=== PATIENT | male | born 1945 | race Hispanic/Latino ===

== ENCOUNTER 2017-08-07 14:24 | Inpatient (IN) | payer MEDICARE, BC ==
[2017-08-07] MEDS ORDERED: Sodium Chloride 0.9% 500 ML IV STA (15:13)
[2017-08-07 15:36] LABS: BASO # 0.02 K/mm3 (0.0-2.0); BASO % 0.2 % (0.0-3.0); EOS # 0.1 (0.0-0.7); EOS % 1.1 % (1.5-5.0); HEMOGLOBIN 14.8 g/dL (14.0-18.0); LYMPH # 1.8 (1.2-3.4); LYMPH % 15.9 % (22.0-35.0); MEAN CELL VOLUME 104.9 fl (80.0-105.0); MEAN CORPUSCULAR HEMOGLOBIN 35.9 pg (25.0-35.0); MEAN CORPUSCULAR HGB CONC 34.3 g/dl (31.0-37.0); MEAN PLATELET VOLUME 9.5 fl (7.0-11.0); MONO # 1.6 (0.1-0.6); MONO % 13.8 % (1.0-6.0); RBC 4.12 10^6/uL (3.5-6.1); RED CELL DISTRIBUTION WIDTH 13.8 % (11.5-14.5); WHITE BLOOD COUNT 11.6 10^3/ul (4.5-11.0)
[2017-08-07 15:49] LABS: INR 1.18 (0.93-1.08); PARTIAL THROMBOPLASTIN TIME 32.1 Seconds (25.1-36.5); PROTHROMBIN TIME 13.5 SECONDS (9.4-12.5)
[2017-08-07 15:52] LABS: ALBUMIN 3.5 g/dL (3.0-4.8); ALT/SGPT 29 U/L (7-56); AST/SGOT 42 U/L (17-59); BLOOD UREA NITROGEN 9 mg/dL (7-21); CALCIUM 8.7 mg/dL (8.4-10.5); GFR AFRICAN-AMERICAN > 60; GFR NON-AFRICAN AMERICAN > 60; LIPASE 47 U/L (23-300)
[2017-08-07] MEDS ORDERED: Iohexol 350 MG/100 ML VIAL ONE (17:06)
--- NOTE | 2017-08-07 17:27 | ED PDOC ---
Arrival/HPI - General Chief Complaint: Abdominal Pain Time Seen by Provider: 08/07/17 14:29 Historian: Patient - History of Present Illness Narrative History of Present Illness (Text): 08/07/17 17:20 A 71 year old male, whose past medical history includes , presents to the emergency department after being sent by Dr. Dillon for evaluation of small bowel obstruction. Patient was recently discharged from hospital in [place], [place] after having 3-day history of nausea, vomiting, and abdominal pain/ distention and had CT which showed SBO. Patient states he was able to tolerate soft foods given at hospital, and was afterwards discharged. However last night , patient had 2 episodes of vomiting and is currently experiencing nausea. Patient denies any abdominal pain, fever, chills, chest pain, shortness of breath, or any other complaints. Also, patient mentions having small bowel movement today and is passing gas. PMD: Dr. Rafat Niño Past Medical History - Provider Review Nursing Documentation Reviewed: Yes - Past Medical History Past Medical History: No Previous - Cardiac Hx Cardiac Disorders: No - Pulmonary Hx Respiratory Disorders: Yes Hx Emphysema: Yes - Neurological Hx Neurological Disorder: Yes Other/Comment: NEUROPATHY - HEENT Hx HEENT Disorder: Yes (Glasses) - Renal Hx Renal Disorder: No - Endocrine/Metabolic Hx Endocrine Disorders: No - Hematological/Oncological Hx Blood Disorders: No - Integumentary Hx Dermatological Disorder: No - Musculoskeletal/Rheumatological Hx Musculoskeletal Disorders: No - Gastrointestinal Hx Gastrointestinal Disorders: Yes Hx Vomiting: Yes Other/Comment: ILEUS - Genitourinary/Gynecological Hx Genitourinary Disorders: No - Psychiatric Hx Psychophysiologic Disorder: No Hx Substance Use: No - Past Surgical History Past Surgical History: No Previous - Surgical History Other/Comment: HERNIA REPAIR - Anesthesia Hx Anesthesia Reactions: No Hx Malignant Hyperthermia: No - Suicidal Assessment Feels Threatened In Home Enviroment: No Family/Social History - Physician Review Nursing Documentation Reviewed: Yes Family/Social History: No Known Family HX Smoking Status: Never Smoked Hx Alcohol Use: Yes Frequency of alcohol use: Socially Hx Substance Use: No Hx Substance Use Treatment: No Allergies/Home Meds Allergies/Adverse Reactions: Allergies No Known Allergies Allergy (Verified 08/07/17 14:45) Home Medications: Home Meds Medication Instructions Recorded Confirmed Multivitamin [Fruity Vitamin] 1 ctb PO DAILY 01/02/13 08/07/17 Furosemide 20 mg PO Q2 12/23/14 08/07/17 Zonisamide 200 mg PO DAILY 12/23/14 08/07/17 l-Methylfolate/Methylcobalam1 1 tab PO BID 12/23/14 08/07/17 [Metanx 2.8 mg-2 mg-25 mg] Nadolol [Corgard] 20 mg PO DAILY 08/07/17 08/07/17 Ranitidine HCl [Zantac] 150 mg PO BID 08/07/17 08/07/17 Review of Systems - Physician Review All systems were reviewed & negative as marked: Yes - Review of Systems Constitutional: absent: Fevers, Night Sweats Respiratory: absent: SOB, Cough, Sputum Cardiovascular: absent: Chest Pain, Palpitations, Syncope Gastrointestinal: Nausea, Vomiting (2 episodes of vomiting last night). absent : Abdominal Pain, Constipation, Diarrhea Genitourinary Male: absent: Dysuria, Frequency, Hematuria Musculoskeletal: absent: Arthralgias, Back Pain, Neck Pain Skin: absent: Rash, Pruritis Neurological: absent: Headache, Dizziness Psychiatric: absent: Anxiety, Depression Physical Exam Vital Signs Reviewed: Yes Vital Signs Temp Pulse Resp BP Pulse Ox 08/07/17 20:41 73 18 134/82 98 08/07/17 19:48 75 17 116/80 98 08/07/17 17:13 79 18 112/78 98 08/07/17 14:47 98.8 F 85 17 114/81 97 Temperature: Afebrile Blood Pressure: Normal Pulse: Regular Respiratory Rate: Normal Appearance: Positive for: Well-Appearing Pain Distress: None Mental Status: Positive for: Alert and Oriented X 3 - Systems Exam Head: Present: Atraumatic Mouth: Present: Moist Mucous Membranes Neck: Present: Normal Range of Motion Respiratory/Chest: Present: Clear to Auscultation, Good Air Exchange. No: Respiratory Distress, Accessory Muscle Use Cardiovascular: Present: Regular Rate and Rhythm, Normal S1, S2. No: Murmurs Abdomen: No: Tenderness, Distention, Normal Bowel Sounds (hyperactive bowel sounds right sided), Peritoneal Signs, Rebound, Guarding Back: Present: Normal Inspection. No: CVA Tenderness, Midline Tenderness, Paraspinal Tenderness Upper Extremity: Present: Normal ROM Lower Extremity: Present: Normal ROM Neurological: Present: GCS=15 Skin: Present: Warm, Dry, Normal Color. No: Rashes Psychiatric: Present: Alert, Oriented x 3 Medical Decision Making ED Course and Treatment: 08/07/17 17:24 71 year old male sent to the ER for evaluation of small bowel obstruction. Differential Diagnosis included but are not limited to: Persistent Small Bowel Obstruction Plan: -- Abd/Pelvis CT -- IV Fluids -- Blood work -- Reassess and disposition Progress Notes: pt reassessment; pt resting comfortably; no vomiting in ER. CBC wnl CMP wnl Lipase wnl Urinalysis pending CAT scan: FINDINGS: LOWER THORAX: Unremarkable. LIVER: Cirrhotic liver. Patent portal venous system. GALLBLADDER AND BILE DUCTS: Cholelithiasis without CT evidence of acute cholecystitis. PANCREAS: Unremarkable. No gross lesion or ductal dilatation. SPLEEN: Unremarkable. ADRENALS: Unremarkable. No mass. KIDNEYS AND URETERS: Unremarkable. No hydronephrosis. No solid mass. VASCULATURE: Unremarkable. No aortic aneurysm. BOWEL: Distal small bowel obstruction. The point of narrowing is in the right lower quadrant, beyond which the terminal ileum is within normal limits. Inflammatory changes identified throughout the colon consistent with colitis. APPENDIX: Normal appendix. PERITONEUM: New, moderate volume intra-abdominal and pelvic ascites. No visible free air. LYMPH NODES: Unremarkable. No enlarged lymph nodes. BLADDER: Unremarkable. REPRODUCTIVE: Unremarkable. BONES: No acute fracture. OTHER FINDINGS: None. IMPRESSION: Distal small bowel obstruction. Colitis affecting the entire colon moderate in severity. This represents a new finding compared to the prior study. New intra-abdominal pelvic ascites. Patient reassessment: pt resting comfortably in er; no distress blood cultures pending; pt started on rocephin and flagyl IV. Discussed all results with patient in depth pt of dr. niño; will admit to hospitalist. case discussed with dr. garcia in depth; accepts admission with surgical consult dr. aretha villavicencio; wnl case discussed with surgical pathologist; dr. Akers; pt refusing NG tube at this time. all aspects of this case were discussed the attending of record. Impression: SBO admit to med/surg - Lab Interpretations Lab Results: 08/07/17 15:15 08/07/17 15:15 Lab Results 08/07/17 17:30: Blood Type Confirm O POSITIVE 08/07/17 17:00: Blood Type O POSITIVE, Antibody Screen Negative, BBK History Checked No verified bt 08/07/17 15:15: PT 13.5 H, INR 1.18 H, APTT 32.1 08/07/17 15:15: WBC 11.6 H, RBC 4.12, Hgb 14.8, Hct 43.2, MCV 104.9, MCH 35.9 H , MCHC 34.3, RDW 13.8, Plt Count 198, MPV 9.5, Gran % 69.0 H, Lymph % (Auto) 15.9 L, [place] % (Auto) 13.8 H, Eos % (Auto) 1.1 L, Baso % (Auto) 0.2, Gran # 8.00 H, Lymph # (Auto) 1.8, [place] # (Auto) 1.6 H, Eos # (Auto) 0.1, Baso # (Auto ) 0.02 08/07/17 15:15: Sodium 145, Potassium 3.5 L, Chloride 102, Carbon Dioxide 30, Anion Gap 17, BUN 9, Creatinine 0.7 L, Est GFR ( Amer) > 60, Est GFR (Non -Af Amer) > 60, Random Glucose 107, Calcium 8.7, Total Bilirubin 1.2, AST 42, ALT 29, Alkaline Phosphatase 90, Total Protein 7.1, Albumin 3.5, Globulin 3.5, Albumin/Globulin Ratio 1.0 L, Lipase 47 I have reviewed the lab results: Yes - RAD Interpretation Radiology Orders: 08/07/17 15:12 ABD & PELVIS IV CONTRAST ONLY [CT] Stat 08/07/17 18:22 CHEST PORTABLE [RAD] Stat - Medication Orders Current Medication Orders: Metronidazole (Flagyl) 500 mg in 100 mls @ 100 mls/hr IVPB Q8H JACINDA PRN Reason: Protocol Ceftriaxone Sodium (Rocephin 2 Gm Ivpb) 2 gm in 100 mls @ 100 mls/hr IVPB DAILY JACINDA PRN Reason: Protocol Sodium Chloride (Sodium Chloride 0.9%) 1,000 mls @ 100 mls/hr IV .Q10H [facility] Last Admin: 08/08/17 00:03 Dose: 100 mls/hr eMAR Start Stop Document 08/08/17 00:03 JOLLY (Rec: 08/08/17 00:03 [id number] Intravenous Solution Start Date 08/07/17 Start Time 23:55 Nadolol (Corgard) 20 mg PO DAILY JACINDA Non-Formulary Medication (Furosemide [Furosemide]) 20 mg PO Q2 JACINDA Ondansetron HCl (Zofran Inj) 4 mg IVP Q6H PRN PRN Reason: Nausea/Vomiting Last Admin: 08/08/17 01:01 Dose: 4 mg IVP Administration Document 08/08/17 01:01 BR (Rec: 08/08/17 01:05 [id number] Charges for Administration # of IVP Administrations 1 Pantoprazole Sodium (Protonix Inj) 40 mg IVP DAILY JACINDA Spironolactone (Aldactone) 50 mg PO BID JACINDA Discontinued Medications Sodium Chloride (Sodium Chloride 0.9%) 500 mls @ 999 mls/hr IV .Q31M STA Stop: 08/07/17 15:43 Last Admin: 08/07/17 15:15 Dose: 999 mls/hr eMAR Start Stop Document 08/07/17 15:15 SF (Rec: 08/07/17 16:05 [email or web address] Intravenous Solution Start Date 08/07/17 Start Time 15:15 End Date 08/07/17 End time 15:45 Total Infusion Time 30 Metronidazole (Flagyl) 500 mg in 100 mls @ 100 mls/hr IVPB STAT STA PRN Reason: Protocol Stop: 08/07/17 19:12 Last Admin: 08/07/17 19:52 Dose: 100 mls/hr eMAR Start Stop Document 08/07/17 19:52 SF (Rec: 08/07/17 19:52 [email or web address] Intravenous Solution Start Date 08/07/17 Start Time 19:52 End Date 08/07/17 End time 20:52 Total Infusion Time 60 Ceftriaxone Sodium (Rocephin 1 Gram Ivpb) 1 gm in 100 mls @ 200 mls/hr IVPB STAT STA PRN Reason: Protocol Stop: 08/07/17 18:42 Last Admin: 08/07/17 18:47 Dose: 200 mls/hr eMAR Start Stop Document 08/07/17 18:47 SF (Rec: 08/07/17 18:47 [email or web address] Intravenous Solution Start Date 08/07/17 Start Time 18:47 End Date 08/07/17 End time 19:19 Total Infusion Time 32 Potassium Chloride (Potassium Chloride 20 Meq/100 Ml) 20 meq in 100 mls @ 50 mls/hr IVPB ONCE ONE Stop: 08/08/17 00:19 Last Admin: 08/08/17 00:02 Dose: 50 mls/hr eMAR Start Stop Document 08/08/17 00:02 JOLLY (Rec: 08/08/17 00:02 BR [id number]) Intravenous Solution Start Date 08/07/17 Start Time 23:55 - Scribe Statement The provider has reviewed the documentation as recorded by the Tiera Calderon Provider Scribe Attestation: All medical record entries made by the Tiera were at my direction and personally dictated by me. I have reviewed the chart and agree that the record accurately reflects my personal performance of the history, physical exam, medical decision making, and the department course for this patient. I have also personally directed, reviewed, and agree with the discharge instructions and disposition. Disposition/Present on Arrival - Present on Arrival Any Indicators Present on Arrival: No History of DVT/PE: No History of Uncontrolled Diabetes: No Urinary Catheter: No History of Decub. Ulcer: No History Surgical Site Infection Following: None - Disposition Have Diagnosis and Disposition been Completed?: Yes Diagnosis: Small bowel obstruction, Ascites Disposition: HOSPITALIZED Disposition Time: 18:25 Patient Plan: Admission Patient Problems: Current Active Problems Problem Status Onset Colitis Acute Partial obstruction of small intestine Acute Condition: FAIR
--- NOTE | 2017-08-07 18:00 | CT ---
PROCEDURE: CT Abdomen and Pelvis with contrast HISTORY: hx of SBO, abdominal pain COMPARISON: 04/24/2017 CT abdomen and pelvis. TECHNIQUE: Contrast dose: 100 cc Omnipaque 350 Radiation dose: Total exam DLP = 822.61 mGy-cm. This CT exam was performed using one or more of the following dose reduction techniques: Automated exposure control, adjustment of the mA and/or kV according to patient size, and/or use of iterative reconstruction technique. FINDINGS: LOWER THORAX: Unremarkable. LIVER: Cirrhotic liver. Patent portal venous system. GALLBLADDER AND BILE DUCTS: Cholelithiasis without CT evidence of acute cholecystitis. PANCREAS: Unremarkable. No gross lesion or ductal dilatation. SPLEEN: Unremarkable. ADRENALS: Unremarkable. No mass. KIDNEYS AND URETERS: Unremarkable. No hydronephrosis. No solid mass. VASCULATURE: Unremarkable. No aortic aneurysm. BOWEL: Distal small bowel obstruction. The point of narrowing is in the right lower quadrant, beyond which the terminal ileum is within normal limits. Inflammatory changes identified throughout the colon consistent with colitis. APPENDIX: Normal appendix. PERITONEUM: New, moderate volume intra-abdominal and pelvic ascites. No visible free air. LYMPH NODES: Unremarkable. No enlarged lymph nodes. BLADDER: Unremarkable. REPRODUCTIVE: Unremarkable. BONES: No acute fracture. OTHER FINDINGS: None. IMPRESSION: Distal small bowel obstruction. Colitis affecting the entire colon moderate in severity. This represents a new finding compared to the prior study. New intra-abdominal pelvic ascites.
[2017-08-07] MEDS ORDERED: cefTRIAXone 1 gm 1 GM/100 ML BAG IVPB STA (18:13)
[2017-08-07] MEDS ORDERED: metroNIDAZOLE IV 500 mg/100 ml 500 MG/100 ML BAG IVPB STA (18:13)
[2017-08-07 19:14] LABS: URINE BILIRUBIN SMALL (NEGATIVE); URINE BLOOD NEGATIVE (NEGATIVE); URINE GLUCOSE (UA) NEGATIVE (NEGATIVE); URINE LEUKOCYTE ESTERASE NEGATIVE Leu/uL (NEGATIVE); URINE PROTEIN 30 mg/dL (<30 mg/dL)
[2017-08-07 19:29] LABS: URINE APPEARANCE SL CLOUDY (CLEAR); URINE COLOR YELLOW (YELLOW)
--- NOTE | 2017-08-07 19:34 | CP.PCM.CON ---
<Elvis Akers - Last Filed: 08/08/17 10:26> History of Present Illness - History of Present Illness History of Present Illness: General Surgery Consult Note for Dr. Crockett Reason for consult: Small bowel obstruction, colitis 71 M with PMH that includes liver cirrhosis, EtOH abuse, Hep B, espohageal varices, ascites, who was admitted to [facility] for small bowel obstruction and colitis. Patient was seen and evaluated in the ED. Patient states that he was discharged from [facility] this morning. He was admitted there on Sunday for SBO. Patient was treated conservatively with NGT. Patient had an Upper GI series yestrday at their facility which showed resolution of SBO. Patient was cleared for discharge but Dr. Ceja who is his Info [employer] Operator wanted him to be seen at [facility] upon discharge. CT abd/pelvis was done which revealed ascites, cholelithiasis, distal SBO and colitis. Patient currently denying pain, nausea/vomiting, and diarrhea. He states that he is passing gas and had a couple watery BM earlier today. Denies fever/chills , chest pain, SOB, palpitations, constipation, incontinence, urinary symptoms. PMH: liver cirrhosis, EtOH abuse, Hep B, espohageal varices, ascites Meds: As per EMR Allergy: NKDA PSH: EGD/Colonoscopy, inguinal hernia repair, jaw repair, ankle ORIF FH: non-contributory Social: everyday drinker 3-5 beers and 1-2 glasses of wine, denies tobacco/ illicit drug use Review of Systems - Review of Systems All systems: reviewed and no additional remarkable complaints except (as per HPI ) Past Patient History - Past Social History Smoking Status: Never Smoked - CARDIAC Hx Cardiac Disorders: No - PULMONARY Hx Respiratory Disorders: Yes Hx Emphysema: Yes - NEUROLOGICAL Hx Neurological Disorder: Yes Other/Comment: NEUROPATHY - HEENT Hx HEENT Problems: Yes (Glasses) - RENAL Hx Chronic Kidney Disease: No - ENDOCRINE/METABOLIC Hx Endocrine Disorders: No - HEMATOLOGICAL/ONCOLOGICAL Hx Blood Disorders: No - INTEGUMENTARY Hx Dermatological Problems: No - MUSCULOSKELETAL/RHEUMATOLOGICAL Hx Musculoskeletal Disorders: No - GASTROINTESTINAL Hx Gastrointestinal Disorders: Yes Hx Vomiting: Yes Other/Comment: ILEUS - GENITOURINARY/GYNECOLOGICAL Hx Genitourinary Disorders: No - PSYCHIATRIC Hx Psychophysiologic Disorder: No Hx Substance Use: No - SURGICAL HISTORY Other/Comment: HERNIA REPAIR - ANESTHESIA Hx Anesthesia Reactions: No Hx Malignant Hyperthermia: No Meds Allergies/Adverse Reactions: Allergies Allergy/AdvReac Type Severity Reaction Status Date / Time No Known Allergies Allergy Verified 08/07/17 14:45 Physical Exam - Constitutional Appears: No Acute Distress - Head Exam Head Exam: ATRAUMATIC, NORMOCEPHALIC - Eye Exam Eye Exam: EOMI, Normal appearance Pupil Exam: PERRL - ENT Exam ENT Exam: Mucous Membranes Moist - Neck Exam Neck exam: Positive for: Normal Inspection - Respiratory Exam Respiratory Exam: NORMAL BREATHING PATTERN - Cardiovascular Exam Cardiovascular Exam: RRR, +S1, +S2 - GI/Abdominal Exam GI & Abdominal Exam: Distended, Normal Bowel Sounds, Soft. absent: Firm, Guarding, Hernia, Rebound, Rigid, Tenderness Additional comments: +fluid wave/+shifting dullness - Extremities Exam Extremities exam: Positive for: normal capillary refill, pedal pulses present. Negative for: calf tenderness - Back Exam Back exam: absent: CVA tenderness (L), CVA tenderness (R) - Neurological Exam Neurological exam: Alert, CN II-XII Intact, Oriented x3 - Psychiatric Exam Psychiatric exam: Normal Affect, Normal Mood - Skin Skin Exam: Dry, Intact, Normal Color, Warm Results - Vital Signs Recent Vital Signs: Last Vital Signs Temp 98.8 F 08/07/17 14:47 Pulse 79 08/07/17 17:13 Resp 18 08/07/17 17:13 BP 112/78 08/07/17 17:13 Pulse Ox 98 08/07/17 17:13 - Labs Result Diagrams: 08/08/17 06:40 08/08/17 06:40 Labs: Laboratory Results - last 24 hr 08/07/17 18:45 Urine Color Yellow Urine Appearance Sl cloudy Urine pH 7.0 Ur Specific [place] <= 1.005 Urine Protein 30 H Urine Glucose (UA) Negative Urine Ketones 40 H Urine Blood Negative Urine Nitrate Negative Urine Bilirubin Small H Urine Urobilinogen 1.0 H Ur Leukocyte Esterase Negative Assessment & Plan - Assessment and Plan (Free Text) Assessment: 71 M who presents with SBO and colitis Plan: -NPO until distention improves -IV antibiotics -NG Tube if develops nausea/vomiting and abdominal pain -Serial abdominal exams -Monitor for bowel function -Strict I's & O's -Medical optimization of ascites -Consider paracentesis -Discussed with Dr. Bon Akers PGY1 - Date & Time Date: 08/07/17 Time: 19:00 <Irving Crockett - Last Filed: 08/08/17 16:54> Meds - Medications Medications: Current Medications Metronidazole (Flagyl) 500 mg in 100 mls @ 100 mls/hr IVPB Q8H JACINDA PRN Reason: Protocol Last Admin: 08/08/17 10:37 Dose: 100 mls/hr Ceftriaxone Sodium (Rocephin 2 Gm Ivpb) 2 gm in 100 mls @ 100 mls/hr IVPB DAILY JACINDA PRN Reason: Protocol Last Admin: 08/08/17 10:37 Dose: 100 mls/hr Sodium Chloride (Sodium Chloride 0.9%) 1,000 mls @ 100 mls/hr IV .Q10H [facility] Last Admin: 08/08/17 00:03 Dose: 100 mls/hr Nadolol (Corgard) 20 mg PO DAILY [facility] Last Admin: 08/08/17 10:39 Dose: 20 mg Ondansetron HCl (Zofran Inj) 4 mg IVP Q6H PRN PRN Reason: Nausea/Vomiting Last Admin: 08/08/17 10:48 Dose: 4 mg Pantoprazole Sodium (Protonix Inj) 40 mg IVP DAILY [facility] Last Admin: 08/08/17 10:39 Dose: 40 mg Spironolactone (Aldactone) 50 mg PO BID [facility] Last Admin: 08/08/17 10:39 Dose: 50 mg Results - Vital Signs Recent Vital Signs: Last Vital Signs Temp 97.4 F L 08/08/17 06:00 Pulse 70 08/08/17 10:39 Resp 20 08/08/17 06:00 BP 146/80 08/08/17 10:39 Pulse Ox 99 08/08/17 06:00 - Labs Result Diagrams: 08/08/17 06:40 08/08/17 06:40 Labs: Laboratory Results - last 24 hr 08/07/17 08/07/17 08/08/17 18:45 19:00 06:30 WBC RBC Hgb Hct MCV MCH MCHC RDW Plt Count MPV Gran % Lymph % (Auto) [place] % (Auto) Eos % (Auto) Baso % (Auto) Gran # Lymph # (Auto) [place] # (Auto) Eos # (Auto) Baso # (Auto) pO2 30 VBG pH 7.36 VBG pCO2 56.0 VBG HCO3 31.6 H VBG Total CO2 33.3 H VBG O2 Sat (Calc) 62.8 VBG Base Excess 4.6 H VBG Potassium 3.2 L Sodium 140.0 Chloride 105.0 Glucose 97 Lactate 1.4 FiO2 21.0 Potassium Carbon Dioxide Anion Gap BUN Creatinine Est GFR ( Amer) Est GFR (Non-Af Amer) Random Glucose Calcium Magnesium 1.7 Total Bilirubin AST ALT Alkaline Phosphatase Total Protein Albumin Globulin Albumin/Globulin Ratio Venous Blood Potassium 3.2 L Urine Color Yellow Urine Appearance Sl cloudy Urine pH 7.0 Ur Specific [place] <= 1.005 Urine Protein 30 H Urine Glucose (UA) Negative Urine Ketones 40 H Urine Blood Negative Urine Nitrate Negative Urine Bilirubin Small H Urine Urobilinogen 1.0 H Ur Leukocyte Esterase Negative Urine RBC 0 - 2 Urine WBC 0 - 2 Ur Epithelial Cells 0 - 2 Urine Bacteria Rare 08/08/17 08/08/17 06:40 06:40 WBC 10.1 RBC 3.99 Hgb 13.9 L Hct 41.6 L MCV 104.3 MCH 34.8 MCHC 33.4 RDW 13.8 Plt Count 174 MPV 9.6 Gran % 70.1 H Lymph % (Auto) 13.6 L [place] % (Auto) 15.2 H Eos % (Auto) 0.9 L Baso % (Auto) 0.2 Gran # 7.10 H Lymph # (Auto) 1.4 [place] # (Auto) 1.5 H Eos # (Auto) 0.1 Baso # (Auto) 0.02 pO2 VBG pH VBG pCO2 VBG HCO3 VBG Total CO2 VBG O2 Sat (Calc) VBG Base Excess VBG Potassium Sodium 144 Chloride 106 Glucose Lactate FiO2 Potassium 3.4 L Carbon Dioxide 26 Anion Gap 15 BUN 9 Creatinine 0.7 L Est GFR ( Amer) > 60 Est GFR (Non-Af Amer) > 60 Random Glucose 100 Calcium 7.8 L Magnesium Total Bilirubin 1.0 AST 39 ALT 29 Alkaline Phosphatase 83 Total Protein 6.2 Albumin 3.0 Globulin 3.2 Albumin/Globulin Ratio 0.9 L Venous Blood Potassium Urine Color Urine Appearance Urine pH Ur Specific [place] Urine Protein Urine Glucose (UA) Urine Ketones Urine Blood Urine Nitrate Urine Bilirubin Urine Urobilinogen Ur Leukocyte Esterase Urine RBC Urine WBC Ur Epithelial Cells Urine Bacteria Assessment & Plan - Assessment and Plan (Free Text) Plan: I personally saw and examined the patient at bedside and agree with the residents assessment and plan above. More distended than baseline per patient. Mild anorexia, no nausea or vomiting and having bowel movements. I personally reviewed the CT images and report.. Does appear to have pSBO, transition point not entirely clear. Recommend NPO and NGT if any worsening distension, nausea or vomiting. Consider having GI place NGT under direct vision if patient has history of varices. Patient has no surgical indication at this time but is a high risk patient due do active cirrhosis and ascites should he ever need an operation. Medical optimization, diuresis an consider fluid tap.
[2017-08-07 19:35] LABS: URINE BACTERIA RARE (NEG); URINE EPITHELIAL CELLS 0 - 2 /hpf (0-5); URINE RBC 0 - 2 /hpf (0-2); URINE WBC 0 - 2 /hpf (0-6)
[2017-08-07 19:41] LABS: VENOUS BLOOD GAS BASE EXCESS 4.6 mmol/L (0.0-2.0); VENOUS BLOOD GAS PO2 30 mm/Hg (30-55); VENOUS BLOOD PH 7.36 (7.32-7.43)
[2017-08-07] MEDS ORDERED: FUROSEMIDE 20 MG PO SCH (22:00)
--- NOTE | 2017-08-07 22:04 | CP.PCM.HP ---
<Hernan Pickard - Last Filed: 08/07/17 22:21> History of Present Illness - History of Present Illness History of Present Illness: 71 year old male with a past medical history of liver cirrhosis, ascites, small bowel obstruction and alcohol abuse who comes after being instructed by Dr. Dillon. The patient recently had a stay in [place] for three days. He reported at that time nausea, vomiting, and abdominal pain. He was found to have an SBO while admitted. Patient's diet was tolerated and symptoms subsided and was subsequently discharged. Patient began to have similar symptoms after being discharged from the other hospital and contacted Dr. Dillon who instructed the patient to come into the hospital for examination. Patient recently started drinking again after being sober for some time per the conversation had with Dr. Dillon. Today the patient reports having one small bowel movement and passing some gas earlier in the day. The patient also reports some abdominal discomfort. The patient denies any nausea, vomiting, chest pain, shortness of breath, fevers, chills, dizziness, or any other complaints. PMD: Dr. Niño Past medical hisotry: Liver cirrhosis, ascites Medications: Furosemide 20mg Daily, Nadolol 20mg PO Daily, Ranitidine 150mg PO Daily Allergies: Denies Past surgical hisotry: Hernia repair, plate in right mandible Social history: Alcoholic (States he drinks a couple of beers a day in conjunction with a couple of glasses of wine). Last drink was Sunday. Retired teacher. Present on Admission - Present on Admission Any Indicators Present on Admission: No Review of Systems - Constitutional Constitutional: absent: Anorexia, Chills, Daytime Sleepiness, Headache, Snoring - EENT Eyes: absent: Blurred Vision, Discharge, Loss of Peripheral Vision, Sees Flashes , Loss of Vision Ears: absent: Ear Discharge, Dizziness Nose/Mouth/Throat: absent: Nasal Congestion, Nose Pain, Bleeding Gums, Halitosis , Mouth Pain, Facial Pain - Cardiovascular Cardiovascular: absent: Chest Pain, Claudication, Edema, Irregular Heart Rhythm , Leg Edema, Orthopnea, Palpitations, Syncope - Respiratory Respiratory: absent: Cough, Dyspnea, Hemoptysis, Snoring, Stridor - Gastrointestinal Gastrointestinal: Abdominal Pain. absent: Belching, Diarrhea, Dyspepsia, Dysphagia, Heartburn, Melena, Nausea, Vomiting - Genitourinary Genitourinary: absent: Pyuria, Nocturia - Musculoskeletal Musculoskeletal: absent: Arthralgias, Atrophy, Muscle Weakness, Tingling - Neurological Neurological: absent: Abnormal Hearing, Dizziness, Numbness, Focal Weakness, Headaches, Lack of Coordination, Syncope, Vertigo, Weakness - Endocrine Endocrine: absent: Polydipsia, Polyphagia, Polyuria - Hematologic/Lymphatic Hematologic: absent: Easy Bleeding, Easy Bruising Past Patient History - Past Social History Smoking Status: Never Smoked - CARDIAC Hx Cardiac Disorders: No - PULMONARY Hx Respiratory Disorders: Yes Hx Emphysema: Yes - NEUROLOGICAL Hx Neurological Disorder: Yes Other/Comment: NEUROPATHY - HEENT Hx HEENT Problems: Yes (Glasses) - RENAL Hx Chronic Kidney Disease: No - ENDOCRINE/METABOLIC Hx Endocrine Disorders: No - HEMATOLOGICAL/ONCOLOGICAL Hx Blood Disorders: No - INTEGUMENTARY Hx Dermatological Problems: No - MUSCULOSKELETAL/RHEUMATOLOGICAL Hx Musculoskeletal Disorders: No - GASTROINTESTINAL Hx Gastrointestinal Disorders: Yes Hx Vomiting: Yes Other/Comment: ILEUS - GENITOURINARY/GYNECOLOGICAL Hx Genitourinary Disorders: No - PSYCHIATRIC Hx Psychophysiologic Disorder: No Hx Substance Use: No - SURGICAL HISTORY Other/Comment: HERNIA REPAIR - ANESTHESIA Hx Anesthesia Reactions: No Hx Malignant Hyperthermia: No Meds Allergies/Adverse Reactions: Allergies Allergy/AdvReac Type Severity Reaction Status Date / Time No Known Allergies Allergy Verified 08/07/17 14:45 Physical Exam - Head Exam Head Exam: ATRAUMATIC, NORMAL INSPECTION, NORMOCEPHALIC - Eye Exam Eye Exam: EOMI, Normal appearance, PERRL Pupil Exam: NORMAL ACCOMODATION - ENT Exam ENT Exam: Mucous Membranes Moist, Normal Exam - Neck Exam Neck exam: Positive for: Normal Inspection - Respiratory Exam Respiratory Exam: Clear to Auscultation Bilateral, NORMAL BREATHING PATTERN. absent: Chest Wall Tenderness, Prolonged Expiratory Phase, Respiratory Distress - Cardiovascular Exam Cardiovascular Exam: REGULAR RHYTHM, RRR, +S1, +S2. absent: Rubs - GI/Abdominal Exam GI & Abdominal Exam: Distended, Normal Bowel Sounds, Tenderness. absent: Hypoactive Bowel Sounds, Organomegaly Additional comments: Superficial veins noted on abdomen. Patient is distended. - Extremities Exam Extremities exam: Positive for: normal inspection. Negative for: full ROM, joint swelling, pedal edema, tenderness - Neurological Exam Neurological exam: Alert, CN II-XII Intact, Oriented x3 - Psychiatric Exam Psychiatric exam: Normal Affect, Normal Mood - Skin Skin Exam: Dry, Intact, Normal Color, Warm Results - Vital Signs Recent Vital Signs: Last Vital Signs Temp 98.8 F 08/07/17 14:47 Pulse 73 08/07/17 20:41 Resp 18 08/07/17 20:55 BP 134/82 08/07/17 20:41 Pulse Ox 98 08/07/17 20:55 - Labs Result Diagrams: 08/07/17 15:15 08/07/17 15:15 Labs: Laboratory Results - last 24 hr 08/07/17 08/07/17 18:45 19:00 pO2 30 VBG pH 7.36 VBG pCO2 56.0 VBG HCO3 31.6 H VBG Total CO2 33.3 H VBG O2 Sat (Calc) 62.8 VBG Base Excess 4.6 H VBG Potassium 3.2 L Sodium 140.0 Chloride 105.0 Glucose 97 Lactate 1.4 FiO2 21.0 Venous Blood Potassium 3.2 L Urine Color Yellow Urine Appearance Sl cloudy Urine pH 7.0 Ur Specific [place] <= 1.005 Urine Protein 30 H Urine Glucose (UA) Negative Urine Ketones 40 H Urine Blood Negative Urine Nitrate Negative Urine Bilirubin Small H Urine Urobilinogen 1.0 H Ur Leukocyte Esterase Negative Urine RBC 0 - 2 Urine WBC 0 - 2 Ur Epithelial Cells 0 - 2 Urine Bacteria Rare Assessment & Plan - Assessment and Plan (Free Text) Assessment: 71 year old male with a past medical history of liver cirrhosis, alcohol abuse and small bowel obstruction who is being admitted for SBO. Plan: 1. Small bowel obstruction -Abdomen/pelvis CT scan shows Colitis throughout the entire colon and moderate severity. Shows distal small bowel obstruction -NPO -Surgery Consulted. Will f/u with results. -GI consulted. Will f/u with rec's. 2. Pelvic ascites -Patient has a history of alcohol abuse. -Abdomen/pelvis CT scan shows new moderate volume intra-abdominal and pelvic ascites -Will be seen by GI tomorrow. Will hold off on Interventional radiology at this time in case small bowel obstruction is the more pressing matter. -Spironolactone 50mg PO BID 3.Colitis -WBC upon admission 11.6. -Flagyl and Ceftriaxone. -Will trend with CBC's and clinical progression. Will monitor. 4. Hypokalemia -20meq KCL given -Will monitor with serial CMP's 5. history of Liver cirrhosis -Restart home medications PPX -No indication at this time. <Rozina Michael - Last Filed: 08/08/17 02:02> Results - Vital Signs Recent Vital Signs: Last Vital Signs Temp 97.7 F 08/07/17 23:17 Pulse 66 08/07/17 23:17 Resp 18 08/07/17 23:17 BP 157/96 H 08/07/17 23:17 Pulse Ox 94 L 08/07/17 23:17 - Labs Result Diagrams: 08/07/17 15:15 08/07/17 15:15 Labs: Laboratory Results - last 24 hr 08/07/17 08/07/17 18:45 19:00 pO2 30 VBG pH 7.36 VBG pCO2 56.0 VBG HCO3 31.6 H VBG Total CO2 33.3 H VBG O2 Sat (Calc) 62.8 VBG Base Excess 4.6 H VBG Potassium 3.2 L Sodium 140.0 Chloride 105.0 Glucose 97 Lactate 1.4 FiO2 21.0 Venous Blood Potassium 3.2 L Urine Color Yellow Urine Appearance Sl cloudy Urine pH 7.0 Ur Specific [place] <= 1.005 Urine Protein 30 H Urine Glucose (UA) Negative Urine Ketones 40 H Urine Blood Negative Urine Nitrate Negative Urine Bilirubin Small H Urine Urobilinogen 1.0 H Ur Leukocyte Esterase Negative Urine RBC 0 - 2 Urine WBC 0 - 2 Ur Epithelial Cells 0 - 2 Urine Bacteria Rare Attending/Attestation - Attestation I have personally seen and examined this patient.: Yes I have fully participated in the care of the patient.: Yes I have reviewed all pertinent clinical information: Yes Notes (Text): 08/08/17 01:56Addendum: Physical exam: abdomen is distended,fluid ++ Assessment:Pt has abdominal and pelvic ascites. PPX: protonix already ordered. Also ordered SCDs.
[2017-08-07 23:31] VITALS: BMI 25.7
[2017-08-08] MEDS: Sodium Chloride 0.9% 1,000 ML IV SCH ×2 (00:03→18:17)
[2017-08-08] MEDS: metroNIDAZOLE IV 500 mg/100 ml 500 MG/100 ML BAG IVPB SCH ×3 (04:39→18:12)
[2017-08-08 07:05] LABS: BASO # 0.02 K/mm3 (0.0-2.0); BASO % 0.2 % (0.0-3.0); EOS # 0.1 (0.0-0.7); EOS % 0.9 % (1.5-5.0); GRAN # 7.1 (1.4-6.5); GRAN % 70.1 % (50.0-68.0); HEMOGLOBIN 13.9 g/dL (14.0-18.0); LYMPH # 1.4 (1.2-3.4); LYMPH % 13.6 % (22.0-35.0); MEAN CELL VOLUME 104.3 fl (80.0-105.0); MEAN CORPUSCULAR HEMOGLOBIN 34.8 pg (25.0-35.0); MEAN CORPUSCULAR HGB CONC 33.4 g/dl (31.0-37.0); MEAN PLATELET VOLUME 9.6 fl (7.0-11.0); MONO # 1.5 (0.1-0.6); MONO % 15.2 % (1.0-6.0); RBC 3.99 10^6/uL (3.5-6.1); RED CELL DISTRIBUTION WIDTH 13.8 % (11.5-14.5); WHITE BLOOD COUNT 10.1 10^3/ul (4.5-11.0)
[2017-08-08 07:43] LABS: BLOOD UREA NITROGEN 9 mg/dL (7-21); CALCIUM 7.8 mg/dL (8.4-10.5); GFR AFRICAN-AMERICAN > 60; GFR NON-AFRICAN AMERICAN > 60
[2017-08-08 07:44] LABS: ALB/GLOB RATIO 0.9 (1.1-1.8); ALT/SGPT 29 U/L (7-56); AST/SGOT 39 U/L (17-59)
--- NOTE | 2017-08-08 08:03 | RAD ---
HISTORY: abd pain COMPARISON: Chest radiographs 05/29/2017. FINDINGS: LUNGS: No definite infiltrate is appreciated bilaterally. Left hemidiaphragm is identified but is somewhat difficult to evaluate due identified due to body habitus. Interval linear atelectasis mid left lung zone laterally. PLEURA: No significant pleural effusion identified, no pneumothorax apparent. CARDIOVASCULAR: Cardiomegaly is stable. No pulmonary vascular congestion. OSSEOUS STRUCTURES: No significant abnormalities. VISUALIZED UPPER ABDOMEN: Normal. OTHER FINDINGS: None. IMPRESSION: Stable cardiomegaly. No acute infiltrate or pleural effusion. No pulmonary vascular congestion. Linear atelectasis mid left lung zone laterally.
[2017-08-08] MEDS: cefTRIAXone 2 GM IN NS 2 GM/100 ML BAG IVPB SCH (10:37)
--- NOTE | 2017-08-08 11:41 | CP.PCM.PN ---
Subjective - Date & Time of Evaluation Date of Evaluation: 08/08/17 Time of Evaluation: 11:40 - Subjective Subjective: General surgery progress note for Dr. Crockett-Claudia Nash, PGY-1 Pt S & E at bedside at 1030 Pt reports continued abdominal distention. Denies abdominal pain, N & V, F & C , chest pain, SOB. Seen by Dr. Crockett this AM, will need to be medically optimized prior to any surgical intervention. Objective - Vital Signs/Intake and Output Vital Signs (last 24 hours): Temp Pulse Resp BP Pulse Ox 97.4 F L 70 20 146/80 99 08/08/17 06:00 08/08/17 10:39 08/08/17 06:00 08/08/17 10:39 08/08/17 06:00 Intake and Output: 08/08/17 08/08/17 06:59 18:59 Output Total 100 Balance -100 - Medications Medications: Current Medications Metronidazole (Flagyl) 500 mg in 100 mls @ 100 mls/hr IVPB Q8H JACINDA PRN Reason: Protocol Last Admin: 08/08/17 10:37 Dose: 100 mls/hr Ceftriaxone Sodium (Rocephin 2 Gm Ivpb) 2 gm in 100 mls @ 100 mls/hr IVPB DAILY JACINDA PRN Reason: Protocol Last Admin: 08/08/17 10:37 Dose: 100 mls/hr Sodium Chloride (Sodium Chloride 0.9%) 1,000 mls @ 100 mls/hr IV .Q10H JACINDA Last Admin: 08/08/17 00:03 Dose: 100 mls/hr Potassium Chloride (Potassium Chloride 10 Meq/100 Ml) 10 meq in 100 mls @ 50 mls/hr IVPB Q2H JACINDA Stop: 08/08/17 13:29 Last Admin: 08/08/17 10:36 Dose: 50 mls/hr Nadolol (Corgard) 20 mg PO DAILY JACINDA Last Admin: 08/08/17 10:39 Dose: 20 mg Ondansetron HCl (Zofran Inj) 4 mg IVP Q6H PRN PRN Reason: Nausea/Vomiting Last Admin: 08/08/17 10:48 Dose: 4 mg Pantoprazole Sodium (Protonix Inj) 40 mg IVP DAILY [facility] Last Admin: 08/08/17 10:39 Dose: 40 mg Spironolactone (Aldactone) 50 mg PO BID JACINDA Last Admin: 08/08/17 10:39 Dose: 50 mg - Labs Labs: 08/08/17 06:40 08/08/17 06:40 PT 13.5 SECONDS (9.4-12.5) H 08/07/17 15:15 INR 1.18 (0.93-1.08) H 08/07/17 15:15 APTT 32.1 Seconds (25.1-36.5) 08/07/17 15:15 - Constitutional Appears: Non-toxic, No Acute Distress - Head Exam Head Exam: ATRAUMATIC, NORMAL INSPECTION, NORMOCEPHALIC - Eye Exam Eye Exam: EOMI, Normal appearance - ENT Exam ENT Exam: Mucous Membranes Moist, Normal Exam - Neck Exam Neck Exam: Full ROM, Normal Inspection - Respiratory Exam Respiratory Exam: NORMAL BREATHING PATTERN - Cardiovascular Exam Cardiovascular Exam: REGULAR RHYTHM, +S1, +S2 - GI/Abdominal Exam GI & Abdominal Exam: Distended (grossly), Firm. absent: Guarding, Rigid, Tenderness Additional comments: positive fluid wave, tympanic abdomen - Extremities Exam Extremities Exam: Normal Inspection - Neurological Exam Neurological Exam: Alert, Awake, CN II-XII Intact, Normal Gait, Oriented x3 - Psychiatric Exam Psychiatric exam: Normal Affect, Normal Mood - Skin Skin Exam: Dry, Intact, Normal Color, Warm Assessment and Plan - Assessment and Plan (Free Text) Assessment: 71M w/PMH sig for liver cirrhosis, ETOH abuse, Hep B, esophageal varices, ascites w/SBO & colitis Plan: NPO until GI evaluates pt Cont IV abx for colitis Serial ab exams Monitor for bowel function Strict I/O's Recommend IR for paracentesis No NGT at this time, will place if N/V Medical optimization Will DW attending Charity, PGY-1
--- NOTE | 2017-08-08 13:55 | CP.PCM.CON ---
<JoyceLucina - Last Filed: 08/08/17 17:43> History of Present Illness - History of Present Illness History of Present Illness: GI Consult Note for Adi Danielle PGY2 This is a 71yo male with past medical history of alcoholism w/ cirrhosis, esophageal varices, ascites, and Hepatitis B who came to [facility] for abdominal pain and distention. Patient was found to have SBO and colitis. He was in the [place] and was having abdominal pain since Sunday. He went to [facility] where he was treated for SBO with an NG tube. Patient spoke with Dr. Dillon who recommended for patient to come to [facility]. He had a CT A/P at [facility] which showed colitis, distal SBO, ascites and cholelithiasis. Patient is now having diarrhea that is watery without blood. He denies nausea/vomiting, fever/ chills, chest pain, shortness of breath, dysuria or hematuria. Patient continue to drink alcohol, although quitting for a period of time in the past. Last drink was Sunday. Past medical history: Alcoholism w/ cirrhosis, esophageal varices, ascites, Hepatitis B Past surgical history: inguinal hernia repair, ankle ORIF, jaw surgery, EGD/ Colonoscopy Home meds: Reviewed as per MAR Allergies: NKDA Social history: Drinks daily (3-5 beers, 1-3 glasses of wine), Lives with . Denies tobacco or drug use Family history: Non-contributory. Review of Systems - Review of Systems All systems: reviewed and no additional remarkable complaints except Review of Systems: 12 point ROS reviewed as per HPI and is otherwise negative Past Patient History - Past Social History Smoking Status: Never Smoked - CARDIAC Hx Cardiac Disorders: No - PULMONARY Hx Respiratory Disorders: Yes Hx Emphysema: Yes - NEUROLOGICAL Hx Neurological Disorder: Yes Other/Comment: NEUROPATHY - HEENT Hx HEENT Problems: Yes (Glasses) - RENAL Hx Chronic Kidney Disease: No - ENDOCRINE/METABOLIC Hx Endocrine Disorders: No - HEMATOLOGICAL/ONCOLOGICAL Hx Blood Disorders: No - INTEGUMENTARY Hx Dermatological Problems: No - MUSCULOSKELETAL/RHEUMATOLOGICAL Hx Musculoskeletal Disorders: No - GASTROINTESTINAL Hx Gastrointestinal Disorders: Yes Hx Vomiting: Yes Other/Comment: ILEUS - GENITOURINARY/GYNECOLOGICAL Hx Genitourinary Disorders: No - PSYCHIATRIC Hx Psychophysiologic Disorder: No Hx Substance Use: No - SURGICAL HISTORY Other/Comment: HERNIA REPAIR - ANESTHESIA Hx Anesthesia Reactions: No Hx Malignant Hyperthermia: No Meds Allergies/Adverse Reactions: Allergies Allergy/AdvReac Type Severity Reaction Status Date / Time No Known Allergies Allergy Verified 08/07/17 14:45 - Medications Medications: Current Medications Metronidazole (Flagyl) 500 mg in 100 mls @ 100 mls/hr IVPB Q8H JACINDA PRN Reason: Protocol Last Admin: 08/08/17 10:37 Dose: 100 mls/hr Ceftriaxone Sodium (Rocephin 2 Gm Ivpb) 2 gm in 100 mls @ 100 mls/hr IVPB DAILY JACINDA PRN Reason: Protocol Last Admin: 08/08/17 10:37 Dose: 100 mls/hr Sodium Chloride (Sodium Chloride 0.9%) 1,000 mls @ 100 mls/hr IV .Q10H [facility] Last Admin: 08/08/17 00:03 Dose: 100 mls/hr Nadolol (Corgard) 20 mg PO DAILY [facility] Last Admin: 08/08/17 10:39 Dose: 20 mg Ondansetron HCl (Zofran Inj) 4 mg IVP Q6H PRN PRN Reason: Nausea/Vomiting Last Admin: 08/08/17 10:48 Dose: 4 mg Pantoprazole Sodium (Protonix Inj) 40 mg IVP DAILY [facility] Last Admin: 08/08/17 10:39 Dose: 40 mg Spironolactone (Aldactone) 50 mg PO BID [facility] Last Admin: 08/08/17 10:39 Dose: 50 mg Physical Exam - Constitutional Appears: No Acute Distress - Head Exam Head Exam: ATRAUMATIC, NORMAL INSPECTION, NORMOCEPHALIC - Eye Exam Eye Exam: Normal appearance, PERRL Pupil Exam: NORMAL ACCOMODATION - ENT Exam ENT Exam: Mucous Membranes Moist - Respiratory Exam Respiratory Exam: Clear to Auscultation Bilateral, NORMAL BREATHING PATTERN. absent: Rales, Rhonchi, Wheezes - Cardiovascular Exam Cardiovascular Exam: REGULAR RHYTHM, +S1, +S2. absent: Gallop, Rubs, Systolic Murmur - GI/Abdominal Exam GI & Abdominal Exam: Distended, Hypoactive Bowel Sounds, Soft. absent: Rebound , Rigid, Tenderness - Extremities Exam Extremities exam: Negative for: calf tenderness, pedal edema - Neurological Exam Neurological exam: Alert, CN II-XII Intact, Normal Gait, Oriented x3 - Skin Skin Exam: Dry, Warm Results - Vital Signs Recent Vital Signs: Last Vital Signs Temp 97.4 F L 08/08/17 06:00 Pulse 70 08/08/17 10:39 Resp 20 08/08/17 06:00 BP 146/80 08/08/17 10:39 Pulse Ox 99 08/08/17 06:00 - Labs Result Diagrams: 08/08/17 06:40 08/08/17 06:40 Labs: Laboratory Results - last 24 hr 08/07/17 08/07/17 08/08/17 18:45 19:00 06:30 WBC RBC Hgb Hct MCV MCH MCHC RDW Plt Count MPV Gran % Lymph % (Auto) [place] % (Auto) Eos % (Auto) Baso % (Auto) Gran # Lymph # (Auto) [place] # (Auto) Eos # (Auto) Baso # (Auto) pO2 30 VBG pH 7.36 VBG pCO2 56.0 VBG HCO3 31.6 H VBG Total CO2 33.3 H VBG O2 Sat (Calc) 62.8 VBG Base Excess 4.6 H VBG Potassium 3.2 L Sodium 140.0 Chloride 105.0 Glucose 97 Lactate 1.4 FiO2 21.0 Potassium Carbon Dioxide Anion Gap BUN Creatinine Est GFR ( Amer) Est GFR (Non-Af Amer) Random Glucose Calcium Magnesium 1.7 Total Bilirubin AST ALT Alkaline Phosphatase Total Protein Albumin Globulin Albumin/Globulin Ratio Venous Blood Potassium 3.2 L Urine Color Yellow Urine Appearance Sl cloudy Urine pH 7.0 Ur Specific [place] <= 1.005 Urine Protein 30 H Urine Glucose (UA) Negative Urine Ketones 40 H Urine Blood Negative Urine Nitrate Negative Urine Bilirubin Small H Urine Urobilinogen 1.0 H Ur Leukocyte Esterase Negative Urine RBC 0 - 2 Urine WBC 0 - 2 Ur Epithelial Cells 0 - 2 Urine Bacteria Rare 08/08/17 08/08/17 06:40 06:40 WBC 10.1 RBC 3.99 Hgb 13.9 L Hct 41.6 L MCV 104.3 MCH 34.8 MCHC 33.4 RDW 13.8 Plt Count 174 MPV 9.6 Gran % 70.1 H Lymph % (Auto) 13.6 L [place] % (Auto) 15.2 H Eos % (Auto) 0.9 L Baso % (Auto) 0.2 Gran # 7.10 H Lymph # (Auto) 1.4 [place] # (Auto) 1.5 H Eos # (Auto) 0.1 Baso # (Auto) 0.02 pO2 VBG pH VBG pCO2 VBG HCO3 VBG Total CO2 VBG O2 Sat (Calc) VBG Base Excess VBG Potassium Sodium 144 Chloride 106 Glucose Lactate FiO2 Potassium 3.4 L Carbon Dioxide 26 Anion Gap 15 BUN 9 Creatinine 0.7 L Est GFR ( Amer) > 60 Est GFR (Non-Af Amer) > 60 Random Glucose 100 Calcium 7.8 L Magnesium Total Bilirubin 1.0 AST 39 ALT 29 Alkaline Phosphatase 83 Total Protein 6.2 Albumin 3.0 Globulin 3.2 Albumin/Globulin Ratio 0.9 L Venous Blood Potassium Urine Color Urine Appearance Urine pH Ur Specific [place] Urine Protein Urine Glucose (UA) Urine Ketones Urine Blood Urine Nitrate Urine Bilirubin Urine Urobilinogen Ur Leukocyte Esterase Urine RBC Urine WBC Ur Epithelial Cells Urine Bacteria Assessment & Plan - Assessment and Plan (Free Text) Assessment: This is a 71yo male with past medical history of alcoholism w/ cirrhosis, esophageal varices, ascites, and Hepatitis B who was admitted for 1. Small bowel obstruction 2. Colitis with diarrhea 3. Cirrhosis with ascites 4. Alcoholism Plan: Recommend to obtain stool studies to rule out C. diff. Will obtain abdominal U/ S as well as abdominal duplex U/S to rule out portal vein thrombosis. Patient is on clear liquid diet and IV fluids. Continue IV antibiotics, Nadolol, Zofran , PPI and Aldactone. Surgery is consulted and recommends medical management and evaluation of ascites at this time. Will consider paracentesis if ascites is significant. Case seen, reviewed and discussed with Dr. Dillon. Adi Cook PGY2 - Date & Time Date: 08/08/17 Time: 08:00 <Ceasar Dillon V - Last Filed: 08/09/17 06:27> Meds - Medications Medications: Current Medications Metronidazole (Flagyl) 500 mg in 100 mls @ 100 mls/hr IVPB Q8H JACINDA PRN Reason: Protocol Last Admin: 08/09/17 01:32 Dose: 100 mls/hr Ceftriaxone Sodium (Rocephin 2 Gm Ivpb) 2 gm in 100 mls @ 100 mls/hr IVPB DAILY JACINDA PRN Reason: Protocol Last Admin: 08/08/17 10:37 Dose: 100 mls/hr Sodium Chloride (Sodium Chloride 0.9%) 1,000 mls @ 100 mls/hr IV .Q10H [facility] Last Admin: 08/08/17 18:17 Dose: 100 mls/hr Nadolol (Corgard) 20 mg PO DAILY [facility] Last Admin: 08/08/17 10:39 Dose: 20 mg Ondansetron HCl (Zofran Inj) 4 mg IVP Q6H PRN PRN Reason: Nausea/Vomiting Last Admin: 08/08/17 10:48 Dose: 4 mg Pantoprazole Sodium (Protonix Inj) 40 mg IVP DAILY [facility] Last Admin: 08/08/17 10:39 Dose: 40 mg Spironolactone (Aldactone) 50 mg PO BID [facility] Last Admin: 08/08/17 18:12 Dose: 50 mg Results - Vital Signs Recent Vital Signs: Last Vital Signs Temp 97.5 F L 08/08/17 21:42 Pulse 60 08/08/17 21:42 Resp 21 08/08/17 21:42 BP 134/80 08/08/17 21:42 Pulse Ox 97 08/08/17 21:42 - Labs Result Diagrams: 08/08/17 06:40 08/08/17 06:40 Labs: Laboratory Results - last 24 hr 08/08/17 08/08/17 08/08/17 06:30 06:40 06:40 WBC 10.1 RBC 3.99 Hgb 13.9 L Hct 41.6 L MCV 104.3 MCH 34.8 MCHC 33.4 RDW 13.8 Plt Count 174 MPV 9.6 Gran % 70.1 H Lymph % (Auto) 13.6 L [place] % (Auto) 15.2 H Eos % (Auto) 0.9 L Baso % (Auto) 0.2 Gran # 7.10 H Lymph # (Auto) 1.4 [place] # (Auto) 1.5 H Eos # (Auto) 0.1 Baso # (Auto) 0.02 Sodium 144 Potassium 3.4 L Chloride 106 Carbon Dioxide 26 Anion Gap 15 BUN 9 Creatinine 0.7 L Est GFR ( Amer) > 60 Est GFR (Non-Af Amer) > 60 Random Glucose 100 Calcium 7.8 L Magnesium 1.7 Total Bilirubin 1.0 AST 39 ALT 29 Alkaline Phosphatase 83 Total Protein 6.2 Albumin 3.0 Globulin 3.2 Albumin/Globulin Ratio 0.9 L Attending/Attestation - Attestation I have personally seen and examined this patient.: Yes I have fully participated in the care of the patient.: Yes I have reviewed all pertinent clinical information: Yes Notes (Text): This is an addendum to GI consult report dictated by the Commercial Loan Collection Officer.The patient was seen and examined earlier. Medical records, lab studies, imagings were reviewed. Last 24 hours events reviewed. Agreed with the above treatment plan as outlined in Commercial Loan Collection Officer 's notes the with the addition of the following 08/09/17 06:27
--- NOTE | 2017-08-08 16:20 | CP.PCM.PN ---
Subjective - Date & Time of Evaluation Date of Evaluation: 08/08/17 Time of Evaluation: 16:18 - Subjective Subjective: Patient seen and examined at bedside. Per nursing no acute events occurred overnight. The patient reports still feeling distended in his abdomen. The patient reports feeling multiple episodes of watery diarrhea since this morning and passing flatus. The patient denies any chest pain, shortness of breath, fevers, chills, nausea, vomiting, dizzines, or any other complaints. Objective - Vital Signs/Intake and Output Vital Signs (last 24 hours): Temp Pulse Resp BP Pulse Ox 97.4 F L 70 20 146/80 99 08/08/17 06:00 08/08/17 10:39 08/08/17 06:00 08/08/17 10:39 08/08/17 06:00 Intake and Output: 08/08/17 08/08/17 06:59 18:59 Intake Total 600 Output Total 100 Balance -100 600 - Medications Medications: Current Medications Metronidazole (Flagyl) 500 mg in 100 mls @ 100 mls/hr IVPB Q8H JACINDA PRN Reason: Protocol Last Admin: 08/08/17 10:37 Dose: 100 mls/hr Ceftriaxone Sodium (Rocephin 2 Gm Ivpb) 2 gm in 100 mls @ 100 mls/hr IVPB DAILY JACINDA PRN Reason: Protocol Last Admin: 08/08/17 10:37 Dose: 100 mls/hr Sodium Chloride (Sodium Chloride 0.9%) 1,000 mls @ 100 mls/hr IV .Q10H JACINDA Last Admin: 08/08/17 00:03 Dose: 100 mls/hr Nadolol (Corgard) 20 mg PO DAILY [facility]IN[facility] Last Admin: 08/08/17 10:39 Dose: 20 mg Ondansetron HCl (Zofran Inj) 4 mg IVP Q6H PRN PRN Reason: Nausea/Vomiting Last Admin: 08/08/17 10:48 Dose: 4 mg Pantoprazole Sodium (Protonix Inj) 40 mg IVP DAILY [facility] Last Admin: 08/08/17 10:39 Dose: 40 mg Spironolactone (Aldactone) 50 mg PO BID [facility] Last Admin: 08/08/17 10:39 Dose: 50 mg - Labs Labs: 08/08/17 06:40 08/08/17 06:40 PT 13.5 SECONDS (9.4-12.5) H 08/07/17 15:15 INR 1.18 (0.93-1.08) H 08/07/17 15:15 APTT 32.1 Seconds (25.1-36.5) 08/07/17 15:15 - Head Exam Head Exam: ATRAUMATIC, NORMAL INSPECTION - Eye Exam Eye Exam: EOMI, Normal appearance, PERRL Pupil Exam: NORMAL ACCOMODATION - ENT Exam ENT Exam: Mucous Membranes Moist - Neck Exam Neck Exam: Normal Inspection - Respiratory Exam Respiratory Exam: Clear to Ausculation Bilateral, NORMAL BREATHING PATTERN - Cardiovascular Exam Cardiovascular Exam: REGULAR RHYTHM, +S1, +S2 - GI/Abdominal Exam GI & Abdominal Exam: Distended. absent: Rigid, Diminished Bowel Sounds, Hyperactive Bowel Sounds - Rectal Exam Rectal Exam: NORMAL INSPECTION - Extremities Exam Extremities Exam: Full ROM, Normal Inspection. absent: Pedal Edema - Back Exam Back Exam: NORMAL INSPECTION - Neurological Exam Neurological Exam: Alert, Awake, CN II-XII Intact, Normal Gait, Oriented x3 - Psychiatric Exam Psychiatric exam: Normal Affect, Normal Mood - Skin Skin Exam: Dry, Intact Assessment and Plan - Assessment and Plan (Free Text) Assessment: 71 year old male with a past medical history of liver cirrhosis, alcohol abuse and small bowel obstruction who is being admitted for SBO. Plan: 1. Small bowel obstruction -Abdomen/pelvis CT scan shows Colitis throughout the entire colon and moderate severity. Shows distal small bowel obstruction -NPO. Ok to have water per Surgery team. Will monitor for nausea, vomiting. -Surgery Consulted. Help appreciated. At this point will manage medically per Surgery team. -GI consulted. Help appreciated. -Abdominal ultrasound ordered. Will f/u with rec's. 2. Pelvic ascites 2/2 to liver cirrhosis -Patient has a history of alcohol abuse. -Abdomen/pelvis CT scan shows new moderate volume intra-abdominal and pelvic ascites -Spironolactone 50mg PO BID -Will consider paracentesis if ascities is significant on Abdominal ultrasound per GI team. Will f/u. 3.Colitis with diarrhea -WBC upon admission 11.6. -Continue Flagyl and Ceftriaxone. -C.dif ordered. Will f/u with results. -Will trend with CBC's and clinical progression. Will monitor. 4. Hypokalemia -Resolved. -20meq KCL given -Will monitor with serial CMP's 5. history of Liver cirrhosis -Restart home medications 6.Alcohol abuse -Encouraged patient to abstain from alcohol going forward. -Will provide patient with Alcoholic Anonymous literature upon discharge. PPX -Protonix.
--- NOTE | 2017-08-08 18:02 | US ---
HISTORY: Ascites and cirrhosis. COMPARISON: Comparison made with CT scan of the abdomen and pelvis dated 08/07 2017. . TECHNIQUE: Sonographic evaluation of the abdomen. FINDINGS: LIVER: Exhibits normal size measuring approximately 15.5 cm CC dimension. Liver exhibits nodular surface contour and heterogeneous echotexture consistent with this patient's history of cirrhosis. No obvious masses or collections seen on images presented. No gross intrahepatic biliary ductal dilatation. Abdominal ascites present and seen to better advantage on prior CT scan 08/07/2017. GALLBLADDER: Gallbladder is physiologically distended and contains multiple intraluminal calculi. Gallbladder wall is thickened. Rule out acute or chronic cholecystitis however no sonographic Hernandez sign present as per technologist notation. COMMON BILE DUCT: Measures 3.0 mm. No stones. No dilatation. PANCREAS: Pancreas poorly delineated due to body habitus and bowel gas as well as ascites RIGHT KIDNEY: Measures 10.6 x 4.7 x 4.8cm. Normal echogenicity. No calculus, mass, or hydronephrosis. LEFT KIDNEY: Measures 10.5 x 5.4 x 5.9cm. Normal echogenicity. No calculus, mass, or hydronephrosis. SPLEEN: Normal in size and contour. No mass. AORTA: Not visualized IVC: Not visualized OTHER FINDINGS: None. IMPRESSION: Limited study as above. Hepatic cirrhosis with abdominal ascites. Cholelithiasis with gallbladder wall thickening ; rule out acute and/or chronic cholecystitis
--- NOTE | 2017-08-08 20:23 | US ---
PROCEDURE: Portal vein duplex ultrasound. CLINICAL HISTORY: Cirrhosis. Deteriorating liver function. Evaluate for portal vein thrombosis. PHYSICIAN(S): Moe Ruvalcaba M.D. FINDINGS: The liver parenchyma is heterogeneous and echogenic with a nodular contour, consistent with cirrhosis. No obvious mass is seen on these limited images. The extrahepatic portal vein is patent with hepatopetal flow. The hepatic artery is hypertrophied. Limited images of central hepatic veins are patent. The spleen is prominent. There is a small amount of ascites in the upper IMPRESSION: 1. Patent portal vein with hepatopetal flow.
[2017-08-09] MEDS: metroNIDAZOLE IV 500 mg/100 ml 500 MG/100 ML BAG IVPB SCH ×2 (01:32→09:41)
--- NOTE | 2017-08-09 07:35 | CP.PCM.PN ---
Subjective - Date & Time of Evaluation Date of Evaluation: 08/09/17 Time of Evaluation: 06:35 - Subjective Subjective: General Surgery Note for Dr. Crockett Patient seen and examined at bedside. No acute event overnight. Patient denies adominal pain. He is tolerating regular diet. He denies nausea/vomiting. He has had multiple soft BMs. No complaints at this time. Objective - Vital Signs/Intake and Output Vital Signs (last 24 hours): Temp Pulse Resp BP Pulse Ox 97.5 F L 60 21 134/80 97 08/08/17 21:42 08/08/17 21:42 08/08/17 21:42 08/08/17 21:42 08/08/17 21:42 Intake and Output: 08/09/17 08/09/17 06:59 18:59 Intake Total 420 Output Total 100 Balance 320 - Medications Medications: Current Medications Metronidazole (Flagyl) 500 mg in 100 mls @ 100 mls/hr IVPB Q8H JACINDA PRN Reason: Protocol Last Admin: 08/09/17 01:32 Dose: 100 mls/hr Ceftriaxone Sodium (Rocephin 2 Gm Ivpb) 2 gm in 100 mls @ 100 mls/hr IVPB DAILY JACINDA PRN Reason: Protocol Last Admin: 08/08/17 10:37 Dose: 100 mls/hr Sodium Chloride (Sodium Chloride 0.9%) 1,000 mls @ 100 mls/hr IV .Q10H [facility] Last Admin: 08/08/17 18:17 Dose: 100 mls/hr Nadolol (Corgard) 20 mg PO DAILY [facility] Last Admin: 08/08/17 10:39 Dose: 20 mg Ondansetron HCl (Zofran Inj) 4 mg IVP Q6H PRN PRN Reason: Nausea/Vomiting Last Admin: 08/08/17 10:48 Dose: 4 mg Pantoprazole Sodium (Protonix Inj) 40 mg IVP DAILY [facility] Last Admin: 08/08/17 10:39 Dose: 40 mg Spironolactone (Aldactone) 50 mg PO BID [facility] Last Admin: 08/08/17 18:12 Dose: 50 mg - Labs Labs: 08/08/17 06:40 08/08/17 06:40 PT 13.5 SECONDS (9.4-12.5) H 08/07/17 15:15 INR 1.18 (0.93-1.08) H 08/07/17 15:15 APTT 32.1 Seconds (25.1-36.5) 08/07/17 15:15 - Additional Findings Additional findings: - Constitutional Appears: Non-toxic, No Acute Distress - Head Exam Head Exam: ATRAUMATIC, NORMAL INSPECTION, NORMOCEPHALIC - Eye Exam Eye Exam: EOMI, Normal appearance - ENT Exam ENT Exam: Mucous Membranes Moist, Normal Exam - Neck Exam Neck Exam: Full ROM, Normal Inspection - Respiratory Exam Respiratory Exam: NORMAL BREATHING PATTERN - Cardiovascular Exam Cardiovascular Exam: REGULAR RHYTHM, +S1, +S2 - GI/Abdominal Exam GI & Abdominal Exam: Distended (grossly), Firm. absent: Guarding, Rigid, Tenderness Additional comments: positive fluid wave, tympanic abdomen - Extremities Exam Extremities Exam: Normal Inspection - Neurological Exam Neurological Exam: Alert, Awake, CN II-XII Intact, Normal Gait, Oriented x3 - Psychiatric Exam Psychiatric exam: Normal Affect, Normal Mood - Skin Skin Exam: Dry, Intact, Normal Color, Warm Assessment and Plan - Assessment and Plan (Free Text) Assessment: 71M with PMH for liver cirrhosis, ETOH abuse, Hep B, esophageal varices, ascites presents with SBO & colitis Plan: ADAT Cont IV abx for colitis Serial ab exams Monitor for bowel function Strict I/O's Medical optimization Discussed with Dr. Bon Akers PGY1
[2017-08-09 08:03] VITALS: RESP 20; O2SAT 98
[2017-08-09 08:04] LABS: BASO # 0.03 K/mm3 (0.0-2.0); BASO % 0.4 % (0.0-3.0); EOS # 0.3 (0.0-0.7); EOS % 3.9 % (1.5-5.0); GRAN # 5.14 (1.4-6.5); HEMOGLOBIN 13.9 g/dL (14.0-18.0); LYMPH # 1.8 (1.2-3.4); LYMPH % 21.3 % (22.0-35.0); MEAN CELL VOLUME 104.3 fl (80.0-105.0); MEAN CORPUSCULAR HEMOGLOBIN 35.3 pg (25.0-35.0); MEAN CORPUSCULAR HGB CONC 33.8 g/dl (31.0-37.0); MONO # 1.2 (0.1-0.6); MONO % 14.4 % (1.0-6.0); RBC 3.94 10^6/uL (3.5-6.1); RED CELL DISTRIBUTION WIDTH 13.8 % (11.5-14.5); WHITE BLOOD COUNT 8.6 10^3/ul (4.5-11.0)
[2017-08-09 08:23] LABS: ALB/GLOB RATIO 0.9 (1.1-1.8); ALBUMIN 2.9 g/dL (3.0-4.8); ALT/SGPT 26 U/L (7-56); AST/SGOT 32 U/L (17-59); BLOOD UREA NITROGEN 7 mg/dL (7-21); GFR AFRICAN-AMERICAN > 60; GFR NON-AFRICAN AMERICAN > 60
[2017-08-09] MEDS ORDERED: Potassium Chloride 20 mEq ER Tab PO ONE (09:25)
[2017-08-09] MEDS: cefTRIAXone 2 GM IN NS 2 GM/100 ML BAG IVPB SCH (09:40)
[2017-08-09] MEDS: Sodium Chloride 0.9% 1,000 ML IV SCH ×2 (09:43→10:47)
--- NOTE | 2017-08-09 11:18 | CP.PCM.PN ---
Subjective - Date & Time of Evaluation Date of Evaluation: 08/09/17 Time of Evaluation: 08:00 - Subjective Subjective: GI Progress Note for Adi Danielle PGY2 Patient seen an examined at bedside. There were no acute overnight events as per nursing staff. Patient reports his diarrhea has been improving and is more formed. He reports feeling hungry and is very anxious to leave. He denies chest pain, shortness of breath, abdominal pain, nausea/vomiting/diarrhea, fever or chills. Objective - Vital Signs/Intake and Output Vital Signs (last 24 hours): Temp Pulse Resp BP Pulse Ox 98.4 F 64 20 135/77 98 08/09/17 06:00 08/09/17 09:42 08/09/17 06:00 08/09/17 09:42 08/09/17 06:00 Intake and Output: 08/09/17 08/09/17 06:59 18:59 Intake Total 420 Output Total 100 Balance 320 - Medications Medications: Current Medications Metronidazole (Flagyl) 500 mg in 100 mls @ 100 mls/hr IVPB Q8H JACINDA PRN Reason: Protocol Last Admin: 08/09/17 09:41 Dose: 100 mls/hr Ceftriaxone Sodium (Rocephin 2 Gm Ivpb) 2 gm in 100 mls @ 100 mls/hr IVPB DAILY JACINDA PRN Reason: Protocol Last Admin: 08/09/17 09:40 Dose: 100 mls/hr Sodium Chloride (Sodium Chloride 0.9%) 1,000 mls @ 100 mls/hr IV .Q10H [facility] Last Admin: 08/09/17 10:47 Dose: Not Given Nadolol (Corgard) 20 mg PO DAILY [facility] Last Admin: 08/09/17 09:42 Dose: 20 mg Ondansetron HCl (Zofran Inj) 4 mg IVP Q6H PRN PRN Reason: Nausea/Vomiting Last Admin: 08/08/17 10:48 Dose: 4 mg Pantoprazole Sodium (Protonix Inj) 40 mg IVP DAILY [facility] Last Admin: 08/09/17 09:42 Dose: 40 mg Spironolactone (Aldactone) 50 mg PO BID [facility] Last Admin: 08/09/17 09:42 Dose: 50 mg - Labs Labs: 08/09/17 07:30 08/09/17 07:30 PT 13.5 SECONDS (9.4-12.5) H 08/07/17 15:15 INR 1.18 (0.93-1.08) H 08/07/17 15:15 APTT 32.1 Seconds (25.1-36.5) 08/07/17 15:15 - Constitutional Appears: No Acute Distress - Head Exam Head Exam: ATRAUMATIC, NORMAL INSPECTION, NORMOCEPHALIC - Eye Exam Eye Exam: Normal appearance, PERRL Pupil Exam: NORMAL ACCOMODATION - ENT Exam ENT Exam: Mucous Membranes Moist - Respiratory Exam Respiratory Exam: Clear to Ausculation Bilateral, NORMAL BREATHING PATTERN. absent: Rales, Rhonchi, Wheezes - Cardiovascular Exam Cardiovascular Exam: REGULAR RHYTHM, +S1, +S2. absent: Gallop, Rubs, Murmur - GI/Abdominal Exam GI & Abdominal Exam: Distended, Soft, Normal Bowel Sounds. absent: Tenderness, Mass, Rebound - Extremities Exam Extremities Exam: Normal Inspection. absent: Calf Tenderness, Pedal Edema - Neurological Exam Neurological Exam: Alert, Awake, CN II-XII Intact, Oriented x3 - Psychiatric Exam Psychiatric exam: Normal Affect, Normal Mood - Skin Skin Exam: Dry, Warm Assessment and Plan - Assessment and Plan (Free Text) Assessment: This is a 71yo male with past medical history of alcoholism w/ cirrhosis, esophageal varices, ascites, and Hepatitis B who was admitted for 1. Small bowel obstruction 2. Colitis with diarrhea 3. Cirrhosis with ascites 4. Alcoholism Plan: C.diff was negative. Will advance patient to [facility] [place] to see if tolerating. Imaging reviewed. Abdominal U/S did not show enough ascites for drainage. No portal vein thrombosis was noted. Surgery recommended medical management at this time. Patient is very anxious to leave and does not want to stay for further evaluation. He can follow up with Dr. Dillon next week. He will need outpatient MRI enteroscopy. Continue PPI. Case seen, reviewed and discussed with Dr. Dillon. Adi Cook PGY2
--- NOTE | 2017-08-09 13:02 | RAD ---
HISTORY: SBO COMPARISON: No prior. FINDINGS: BOWEL: Normal. No obstruction. No free air. BONES: Normal. OTHER FINDINGS: None. IMPRESSION: No active disease.
[2017-08-09 14:48] VITALS: BP 157/93; PULSE 53; TEMP 97.7
--- NOTE | 2017-08-09 15:33 | CP.PCM.DIS ---
<Hernan Pickard - Last Filed: 08/09/17 15:59> Provider - Provider Date of Admission: 08/07/17 18:25 Attending physician: Mandy Pederson MD Primary care physician: Rafat Niño MD Time Spent in preparation of Discharge (in minutes): 45 Hospital Course - Lab Results Lab Results: Micro Results 08/09/17 08:09 Stool C. difficile Antigen & Toxin A,B (M - Final 08/08/17 02:00 Urine Urine Culture - Final No Growth (<1,000 CFU/ML) 08/07/17 19:30 Blood Blood Culture - Preliminary NO GROWTH AFTER 24 HOURS 08/07/17 19:00 Blood Blood Culture - Preliminary NO GROWTH AFTER 24 HOURS Most Recent Lab Values WBC 8.6 10^3/ul (4.5-11.0) 08/09/17 07:30 RBC 3.94 10^6/uL (3.5-6.1) 08/09/17 07:30 Hgb 13.9 g/dL (14.0-18.0) L 08/09/17 07:30 Hct 41.1 % (42.0-52.0) L 08/09/17 07:30 MCV 104.3 fl (80.0-105.0) 08/09/17 07:30 MCH 35.3 pg (25.0-35.0) H 08/09/17 07:30 MCHC 33.8 g/dl (31.0-37.0) 08/09/17 07:30 RDW 13.8 % (11.5-14.5) 08/09/17 07:30 Plt Count 201 10^3/uL (120.0-450.0) 08/09/17 07:30 MPV 10.0 fl (7.0-11.0) 08/09/17 07:30 Gran % 60.0 % (50.0-68.0) 08/09/17 07:30 Lymph % (Auto) 21.3 % (22.0-35.0) L 08/09/17 07:30 [place] % (Auto) 14.4 % (1.0-6.0) H 08/09/17 07:30 Eos % (Auto) 3.9 % (1.5-5.0) 08/09/17 07:30 Baso % (Auto) 0.4 % (0.0-3.0) 08/09/17 07:30 Gran # 5.14 (1.4-6.5) 08/09/17 07:30 Lymph # (Auto) 1.8 (1.2-3.4) 08/09/17 07:30 [place] # (Auto) 1.2 (0.1-0.6) H 08/09/17 07:30 Eos # (Auto) 0.3 (0.0-0.7) 08/09/17 07:30 Baso # (Auto) 0.03 K/mm3 (0.0-2.0) 08/09/17 07:30 PT 13.5 SECONDS (9.4-12.5) H 08/07/17 15:15 INR 1.18 (0.93-1.08) H 08/07/17 15:15 APTT 32.1 Seconds (25.1-36.5) 08/07/17 15:15 pO2 30 mm/Hg (30-55) 08/07/17 19:00 VBG pH 7.36 (7.32-7.43) 08/07/17 19:00 VBG pCO2 56.0 (40-60) 08/07/17 19:00 VBG HCO3 31.6 mmol/l (21-28) H 08/07/17 19:00 VBG Total CO2 33.3 mmol.L (22-28) H 08/07/17 19:00 VBG O2 Sat (Calc) 62.8 % (40-65) 08/07/17 19:00 VBG Base Excess 4.6 mmol/L (0.0-2.0) H 08/07/17 19:00 VBG Potassium 3.2 mmol/L (3.6-5.2) L 08/07/17 19:00 Sodium 140.0 mmol/L (132-148) 08/07/17 19:00 Chloride 105.0 mmol/L (98-107) 08/07/17 19:00 Glucose 97 mg/dl (75-110) 08/07/17 19:00 Lactate 1.4 mmol/L (0.7-2.1) 08/07/17 19:00 FiO2 21.0 % 08/07/17 19:00 Sodium 144 mmol/L (132-148) 08/09/17 07:30 Potassium 3.3 mmol/L (3.6-5.0) L 08/09/17 07:30 Chloride 109 mmol/L (98-107) H 08/09/17 07:30 Carbon Dioxide 27 mmol/L (21-33) 08/09/17 07:30 Anion Gap 11 (10-20) 08/09/17 07:30 BUN 7 mg/dL (7-21) 08/09/17 07:30 Creatinine 0.7 mg/dl (0.8-1.5) L 08/09/17 07:30 Est GFR ( Amer) > 60 08/09/17 07:30 Est GFR (Non-Af Amer) > 60 08/09/17 07:30 Random Glucose 90 mg/dL (70-110) 08/09/17 07:30 Calcium 8.0 mg/dL (8.4-10.5) L 08/09/17 07:30 Magnesium 1.7 mg/dL (1.7-2.2) 08/08/17 06:30 Total Bilirubin 0.7 mg/dL (0.2-1.3) 08/09/17 07:30 AST 32 U/L (17-59) 08/09/17 07:30 ALT 26 U/L (7-56) 08/09/17 07:30 Alkaline Phosphatase 75 U/L (38-126) 08/09/17 07:30 Total Protein 6.1 g/dL (5.8-8.3) 08/09/17 07:30 Albumin 2.9 g/dL (3.0-4.8) L 08/09/17 07:30 Globulin 3.2 gm/dL 08/09/17 07:30 Albumin/Globulin Ratio 0.9 (1.1-1.8) L 08/09/17 07:30 Lipase 47 U/L (23-300) 08/07/17 15:15 Venous Blood Potassium 3.2 mmol/L (3.6-5.2) L 08/07/17 19:00 Urine Color Yellow (YELLOW) 08/07/17 18:45 Urine Appearance Sl cloudy (CLEAR) 08/07/17 18:45 Urine pH 7.0 (4.7-8.0) 08/07/17 18:45 Ur Specific [place] <= 1.005 (1.005-1.035) 08/07/17 18:45 Urine Protein 30 mg/dL (<30 mg/dL) H 08/07/17 18:45 Urine Glucose (UA) Negative mg/dL (NEGATIVE) 08/07/17 18:45 Urine Ketones 40 mg/dL (NEGATIVE) H 08/07/17 18:45 Urine Blood Negative (NEGATIVE) 08/07/17 18:45 Urine Nitrate Negative (NEGATIVE) 08/07/17 18:45 Urine Bilirubin Small (NEGATIVE) H 08/07/17 18:45 Urine Urobilinogen 1.0 E.U./dL (<1 E.U./dL) H 08/07/17 18:45 Ur Leukocyte Esterase Negative Radha/uL (NEGATIVE) 08/07/17 18:45 Urine RBC 0 - 2 /hpf (0-2) 08/07/17 18:45 Urine WBC 0 - 2 /hpf (0-6) 08/07/17 18:45 Ur Epithelial Cells 0 - 2 /hpf (0-5) 08/07/17 18:45 Urine Bacteria Rare (NEG) 08/07/17 18:45 Blood Type O POSITIVE 08/07/17 17:00 Blood Type Confirm O POSITIVE 08/07/17 17:30 Antibody Screen Negative 08/07/17 17:00 BBK History Checked No verified bt 08/07/17 17:00 - Hospital Course Hospital Course: 71 year old male with a past medical history of liver cirrhosis, ascites, small bowel obstruction and alcohol abuse who comes after being instructed by Dr. Dillon. The patient recently had a stay in [place] for three days. He reported at that time nausea, vomiting, and abdominal pain. He was found to have an SBO while admitted. Patient's diet was tolerated and symptoms subsided and was subsequently discharged. Patient began to have similar symptoms after being discharged from the other hospital and contacted Dr. Dillon who instructed the patient to come into the hospital for examination. Patient recently started drinking again after being sober for some time per the conversation had with Dr. Dillon. Today the patient reports having one small bowel movement and passing some gas earlier in the day. The patient also reports some abdominal discomfort. The patient denies any nausea, vomiting, chest pain, shortness of breath, fevers, chills, dizziness, or any other complaints. PMD: Dr. Niño Past medical hisotry: Liver cirrhosis, ascites Medications: Furosemide 20mg Daily, Nadolol 20mg PO Daily, Ranitidine 150mg PO Daily Allergies: Denies Past surgical hisotry: Hernia repair, plate in right mandible Social history: Alcoholic (States he drinks a couple of beers a day in conjunction with a couple of glasses of wine). Last drink was Sunday. Retired teacher. Hospital Course: Patient was admitted and tests were run. Patient was found to have an SBO and colitis on ct of abdomen and patient was placed on NPO. Patient was seen by Surgery, IR, and Gastroenterology while admitted. Patient was started on Rocephin and Flagyl to cover the inflammation in his colon. Patient was found to have a small amount of ascitic fluid on ultrasound of abdomen and was seen by IR who determined it was too small of an amount to tap the fluid. Patient's diet was advanced to clear liquids and patient was tolerating diet. Patient also reported diarrhea on the second day of his stay and c. dif tests were run. He was seen today and was recommended to stay another day, however the patient wasn't agreeable to staying and said he was leaving today. I alerted the patient to the possiblity of having C. dif infection however patient was unwilling to stay and receive results. Patient was discharged on 7 day course of Flagyl and Cipro and the following instructions. Imagin.Abdomen complete duplex u/s: patent portal vein with hepatopetal flow. 2.Abdomen and pelvis with iv constrast: distal small bowel obstruction. colitis affecting the entire colon moderate in severity. This represents a new finding compared to the prior study. 3.Abdomen XRAY:NO active disease Discharge Instructions: You are being discharged to home. 1.F/u with PMD within one week of discharge. 2. F/u with Dr. Dillon within one week of discharge. 3.F/u with Dr. Dillon for imaging study. 4.Take medication as prescribed. 5. Return to hospital for any new or worsening symptoms Discharge Exam - Head Exam Head Exam: ATRAUMATIC, NORMAL INSPECTION, NORMOCEPHALIC Discharge Plan - Discharge Medications Prescriptions: Ciprofloxacin [Cipro] 500 mg PO BID #14 tab Metronidazole [Flagyl] 500 mg PO Q8 #21 tablet - Follow Up Plan Condition: FAIR Disposition: HOME/ ROUTINE Instructions: Cirrhosis (DC), Low Salt Diet, Fluid in the Belly (Ascites) (DC) Additional Instructions: You are being discharged to home. 1.F/u with PMD within one week of discharge. 2. F/u with Dr. Dillon within one week of discharge. 3.F/u with Dr. Dillon for imaging study. 4.Take medication as prescribed. 5. Return to hospital for any new or worsening symptoms. Referrals: Rafat Niño MD [Primary Care Provider] - Irving Crockett MD [Staff Provider] - Ceasar Dillon MD [Medical Doctor] - <Roman Aguero - Last Filed: 08/09/17 16:36> Provider - Provider Date of Admission: 08/07/17 18:25 Attending physician: Mandy Pederson MD Primary care physician: Rafat Niño MD Hospital Course - Lab Results Lab Results: Micro Results 08/09/17 08:09 Stool C. difficile Antigen & Toxin A,B (M - Final 08/08/17 02:00 Urine Urine Culture - Final No Growth (<1,000 CFU/ML) 08/07/17 19:30 Blood Blood Culture - Preliminary NO GROWTH AFTER 24 HOURS 08/07/17 19:00 Blood Blood Culture - Preliminary NO GROWTH AFTER 24 HOURS Most Recent Lab Values WBC 8.6 10^3/ul (4.5-11.0) 08/09/17 07:30 RBC 3.94 10^6/uL (3.5-6.1) 08/09/17 07:30 Hgb 13.9 g/dL (14.0-18.0) L 08/09/17 07:30 Hct 41.1 % (42.0-52.0) L 08/09/17 07:30 MCV 104.3 fl (80.0-105.0) 08/09/17 07:30 MCH 35.3 pg (25.0-35.0) H 08/09/17 07:30 MCHC 33.8 g/dl (31.0-37.0) 08/09/17 07:30 RDW 13.8 % (11.5-14.5) 08/09/17 07:30 Plt Count 201 10^3/uL (120.0-450.0) 08/09/17 07:30 MPV 10.0 fl (7.0-11.0) 08/09/17 07:30 Gran % 60.0 % (50.0-68.0) 08/09/17 07:30 Lymph % (Auto) 21.3 % (22.0-35.0) L 08/09/17 07:30 [place] % (Auto) 14.4 % (1.0-6.0) H 08/09/17 07:30 Eos % (Auto) 3.9 % (1.5-5.0) 08/09/17 07:30 Baso % (Auto) 0.4 % (0.0-3.0) 08/09/17 07:30 Gran # 5.14 (1.4-6.5) 08/09/17 07:30 Lymph # (Auto) 1.8 (1.2-3.4) 08/09/17 07:30 [place] # (Auto) 1.2 (0.1-0.6) H 08/09/17 07:30 Eos # (Auto) 0.3 (0.0-0.7) 08/09/17 07:30 Baso # (Auto) 0.03 K/mm3 (0.0-2.0) 08/09/17 07:30 PT 13.5 SECONDS (9.4-12.5) H 08/07/17 15:15 INR 1.18 (0.93-1.08) H 08/07/17 15:15 APTT 32.1 Seconds (25.1-36.5) 08/07/17 15:15 pO2 30 mm/Hg (30-55) 08/07/17 19:00 VBG pH 7.36 (7.32-7.43) 08/07/17 19:00 VBG pCO2 56.0 (40-60) 08/07/17 19:00 VBG HCO3 31.6 mmol/l (21-28) H 08/07/17 19:00 VBG Total CO2 33.3 mmol.L (22-28) H 08/07/17 19:00 VBG O2 Sat (Calc) 62.8 % (40-65) 08/07/17 19:00 VBG Base Excess 4.6 mmol/L (0.0-2.0) H 08/07/17 19:00 VBG Potassium 3.2 mmol/L (3.6-5.2) L 08/07/17 19:00 Sodium 140.0 mmol/L (132-148) 08/07/17 19:00 Chloride 105.0 mmol/L (98-107) 08/07/17 19:00 Glucose 97 mg/dl (75-110) 08/07/17 19:00 Lactate 1.4 mmol/L (0.7-2.1) 08/07/17 19:00 FiO2 21.0 % 08/07/17 19:00 Sodium 144 mmol/L (132-148) 08/09/17 07:30 Potassium 3.3 mmol/L (3.6-5.0) L 08/09/17 07:30 Chloride 109 mmol/L (98-107) H 08/09/17 07:30 Carbon Dioxide 27 mmol/L (21-33) 08/09/17 07:30 Anion Gap 11 (10-20) 08/09/17 07:30 BUN 7 mg/dL (7-21) 08/09/17 07:30 Creatinine 0.7 mg/dl (0.8-1.5) L 08/09/17 07:30 Est GFR ( Amer) > 60 08/09/17 07:30 Est GFR (Non-Af Amer) > 60 08/09/17 07:30 Random Glucose 90 mg/dL (70-110) 08/09/17 07:30 Calcium 8.0 mg/dL (8.4-10.5) L 08/09/17 07:30 Magnesium 1.7 mg/dL (1.7-2.2) 08/08/17 06:30 Total Bilirubin 0.7 mg/dL (0.2-1.3) 08/09/17 07:30 AST 32 U/L (17-59) 08/09/17 07:30 ALT 26 U/L (7-56) 08/09/17 07:30 Alkaline Phosphatase 75 U/L (38-126) 06/07/18 07:30 Total Protein 6.1 g/dL (5.8-8.3) 08/09/17 07:30 Albumin 2.9 g/dL (3.0-4.8) L 08/09/17 07:30 Globulin 3.2 gm/dL 08/09/17 07:30 Albumin/Globulin Ratio 0.9 (1.1-1.8) L 08/09/17 07:30 Lipase 47 U/L (23-300) 08/07/17 15:15 Venous Blood Potassium 3.2 mmol/L (3.6-5.2) L 08/07/17 19:00 Urine Color Yellow (YELLOW) 08/07/17 18:45 Urine Appearance Sl cloudy (CLEAR) 08/07/17 18:45 Urine pH 7.0 (4.7-8.0) 08/07/17 18:45 Ur Specific [place] <= 1.005 (1.005-1.035) 08/07/17 18:45 Urine Protein 30 mg/dL (<30 mg/dL) H 08/07/17 18:45 Urine Glucose (UA) Negative mg/dL (NEGATIVE) 08/07/17 18:45 Urine Ketones 40 mg/dL (NEGATIVE) H 08/07/17 18:45 Urine Blood Negative (NEGATIVE) 08/07/17 18:45 Urine Nitrate Negative (NEGATIVE) 08/07/17 18:45 Urine Bilirubin Small (NEGATIVE) H 08/07/17 18:45 Urine Urobilinogen 1.0 E.U./dL (<1 E.U./dL) H 08/07/17 18:45 Ur Leukocyte Esterase Negative Radha/uL (NEGATIVE) 08/07/17 18:45 Urine RBC 0 - 2 /hpf (0-2) 08/07/17 18:45 Urine WBC 0 - 2 /hpf (0-6) 08/07/17 18:45 Ur Epithelial Cells 0 - 2 /hpf (0-5) 08/07/17 18:45 Urine Bacteria Rare (NEG) 08/07/17 18:45 Blood Type O POSITIVE 08/07/17 17:00 Blood Type Confirm O POSITIVE 08/07/17 17:30 Antibody Screen Negative 08/07/17 17:00 BBK History Checked No verified bt 08/07/17 17:00 Attending/Attestation - Attestation I have personally seen and examined this patient.: Yes I have fully participated in the care of the patient.: Yes I have reviewed all pertinent clinical information, including history, physical exam and plan: Yes Notes (Text): Patient seen and examined. Agree with above Reported having a bowel movement with formed stool, denies abdominal pain Abx on discharge and outpt f/u
--- NOTE | 2017-08-09 16:13 | PN ---
DATE: 08/09/2017 TIME: 01:30 p.m. SUBJECTIVE: This is a 71-year-old gentleman who was admitted with a small bowel obstruction. 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 He has a history of ascites and esophageal varices. I reviewed his abdominal and pelvic CT scan from 08/07/2017. This is consistent with a distal small bowel obstruction. No free air seen. A small amount of ascites was noted around the liver and in the pelvic cul-de-sac. This is not enough for a therapeutic paracentesis with ultrasound guidance. If this becomes a significant issue, paracentesis can be performed for diagnostic purposes under CT guidance. Moe Ruvalcaba MD MTDD
[2017-08-09] MEDS ORDERED: METANX PO SCH (18:00)
[2017-08-10] MEDS ORDERED: Multivitamin Therapeutic Tab PO SCH (10:00)
== END 2017-08-09 15:10 | disposition home or self-care (01) | DRG 389 ==
LOC: ED 14:24 → ERH 18:25 → 5RSO 21:00
PROVIDERS: ADMIT Internal Medicine; ATTEND Internal Medicine
DX: K56.600 Partial intestinal obstruction, unspecified as to cause (principal); I85.10 Secondary esophageal varices without bleeding; K52.9 Noninfective gastroenteritis and colitis, unspecified; F10.20 Alcohol dependence, uncomplicated; K70.31 Alcoholic cirrhosis of liver with ascites; J43.9 Emphysema, unspecified; K80.20 Calculus of gallbladder without cholecystitis without obstruction; R40.2412 Glasgow coma scale score 13-15, at arrival to emergency department; E87.6 Hypokalemia; Z87.19 Personal history of other diseases of the digestive system; Z86.19 Personal history of other infectious and parasitic diseases

== ENCOUNTER 2018-04-01 09:45 | Day surgery (SDC) | payer MEDICARE, OTHER ==
[2018-04-01] MEDS ORDERED: Sodium Chloride 0.9% 1,000 ML IV SCH (10:00)
[2018-04-01] MEDS ORDERED: Propofol 10 mg/ml Inj (20 ML) ONE (10:34)
[2018-04-01 13:24] VITALS: BP 139/81; PULSE 52; RESP 16; TEMP 97.6; O2SAT 99
== END 2018-04-01 13:08 | disposition home or self-care (01) ==
LOC: ENDO 09:45
PROVIDERS: ATTEND Internal Medicine Gastroenterology
DX: Z12.11 Encounter for screening for malignant neoplasm of colon (principal); D12.2 Benign neoplasm of ascending colon; K57.30 Diverticulosis of large intestine without perforation or abscess without bleeding; K64.8 Other hemorrhoids; Q43.8 Other specified congenital malformations of intestine; K21.9 Gastro-esophageal reflux disease without esophagitis; K29.70 Gastritis, unspecified, without bleeding; K74.60 Unspecified cirrhosis of liver; Z86.010 Personal history of colon polyps; Z87.11 Personal history of peptic ulcer disease; R18.8 Other ascites
CPT/HCPCS: 45385; 88305; J0295; J2001; J2704; J7030; J7040

== ENCOUNTER 2018-07-22 07:36 | Outpatient (CLI) | payer MEDICARE | END 2018-07-22 07:37 | disposition home or self-care (01) | LOC: RAD 07:36 ==